=== PATIENT | male | born 1945 | race Hispanic/Latino ===

== ENCOUNTER 2018-09-01 04:34 | Emergency (ER) | payer MEDICARE ==
[~2018-09-01] VITALS: Ht 167.6 cm; Wt 90.3 kg
[~2018-09-01 04:34] MED LIST: AMLODIPINE BESY10 MG PO; ATORVASTATIN CA10 MG PO; DOXYCYCLINE HY100 MG PO; FOLIC ACID1 MG PO; GLIPIZIDE5 MG PO; LASIX40 MG PO; LEVAQUIN500 MG PO; METFORMIN HCL500 MG PO; METOPROLOL SUCC25 MG PO; POTASSIUM CHLO10 ME1 PO; PROAIR HFA INH8.5 GM INH; VITAMIN B-121000 MCG SQ
--- OUTSIDE RECORDS SUMMARY | 2018-09-01 04:36 | XMS REPORT ---
Author Author [facility], [place] Address Unknown Phone Unavailable Care Team Providers Care Acute Care Physical Therapist Name Role Phone Barbara MEEHAN Unavailable Unavailable MARIPOSA EL Unavailable Unavailable Problems This patient has no known problems. Allergies, Adverse Reactions, Alerts This patient has no known allergies or adverse reactions. Medications This patient has no known medications. Results Test Description Test Time Test Comments Text Results Atomic Results Result Comments CHEST 2 VIEWS [place] [address] Patient Name: CECILY COOMBS MR #: [id number] : 1945 Age/Sex: 71/M Req #: [id number] Adm Physician: DAYANNA MEEHAN MD Ordered by: LAUREN QUILES MD Report #: [id number] Location: MED/SURG Room/Bed: [facility] Procedure: [id number] DX/CHEST 2 VIEWS Exam Date: 04/22/17 Exam Time: 1212 REPORT STATUS: Signed EXAMINATION: Chest, CHEST 2 VIEWS INDICATION: Chest pain COMPARISON: Portable chest 04/22/2017 at 0251 hours FINDINGS: LINES: None. Heart: Normal cardiac silhouette. Vascular: The pulmonary vasculature is within normal limits. Atherosclerotic calcifications of the aortic arch. Mediastinum: No mediastinal, hilar, or axillary mass or lymphadenopathy. Lungs: No parenchymal mass. No focal consolidation. Bibasilar atelectasis. Pleura: No pleural effusion. No pneumothorax. Bones: No acute osseous abnormality. Degenerative changes of the thoracic spine. Soft tissues: Normal. Impression: No acute radiographic abnormality. Interval resolution of the pulmonary edema. Signed by: Dr. Mariposa Abreu M.D. on 04/22/2017 12:31 PM Dictated By: MARIPOSA ABREU MD 1231 Transcribed By: FÉLIX on 04/22/17 1231 COPY TO: LAUREN QUILES MD CHEST SINGLE (PORTABLE) [place] [address] Patient Name: CECILY COOMBS MR #: [id number] : 1945 Age/Sex: 71/M Req #: [id number] Adm Physician: Ordered by: ROHITH LAWRENCE MD Report #: [id number] Location: ER Room/Bed: Procedure: [id number] DX/CHEST SINGLE (PORTABLE) Exam Date: 04/22/17 Exam Time: 0252 REPORT STATUS: Signed EXAM: CHEST SINGLE (PORTABLE), AP 1 view DATE: 04/22/2017 2:22 AM Time stamp on exam: 0251 hours INDICATION: Shortness of breath COMPARISON: PA and lateral view of the chest April 09, 2017 FINDINGS: LINES/TUBES: None LUNGS: Interval worsening of pulmonary edema. Bibasilar atelectasis. PLEURA: Small layering pleural effusions. HEART AND MEDIASTINUM: Mild cardiomegaly. BONES AND SOFT TISSUES: No acute findings. IMPRESSION: Interval development of pulmonary edema, bibasilar atelectasis and small layering bilateral pleural effusions. Signed by: Dr. Brock Sands M.D. on 04/22/2017 3:11 AM Dictated By: BROCK SANDS MD 0 Transcribed By: FÉLIX on 04/22/17310 COPY TO: ROHITH LAWRENCE MD CHEST 2 VIEWS [place] [address] Patient Name: CECILY COOMBS MR #: [id number] : 1945 Age/Sex: 71/M Req #: [id number] Adm Physician: MARIPOSA EL MD Ordered by: LAUREN QUILES MD Report #: [id number] Location: MED/SURG Room/Bed: [facility] Procedure: [id number] DX/CHEST 2 VIEWS Exam Date: 04/09/17 Exam Time: 1540 REPORT STATUS: Signed EXAMINATION: PA and lateral views of the chest. COMPARISON: CT chest 04/06/2017 CLINICAL HISTORY: Shortness of breath DISCUSSION: Lines/tubes: None. Lungs: Lungs are well-inflated. Left basilar atelectatic changes. Right lung is grossly clear. Pleura: Small left-sided pleural effusion. Heart and mediastinum: Enlarged cardiac silhouette. Central pulmonary venous congestion. Bones and soft tissues: No acute bony abnormalities. IMPRESSION: Enlarged cardiac silhouette with central pulmonary venous congestion. Small left-sided pleural effusion and associated atelectasis. Signed by: Dr. Jesu Espinal M.D. on 04/09/2017 4:15 PM Dictated By: JESU ESPINAL MD 14 Transcribed By: FÉLIX on 04/09/171614 COPY TO: LAUREN QUILES MD CT CHEST WO [place] [address] Patient Name: CECILY COOMBS MR #: [id number] : 1945 Age/Sex: 71/M Req #: [id number] [facility] Physician: MARIPOSA EL MD Ordered by: MARIPOSA EL MD Report #: [id number] Location: MED/SURG Room/Bed: [facility] Procedure: [id number] CT/CT CHEST WO Exam Date: 04/06/17 Exam Time: 1055 REPORT STATUS: Signed PROCEDURE: CT CHEST WITHOUT CONTRAST CT scan of the chest WITHOUT intravenous contrast, using standard protocol. TECHNIQUE: The chest was scanned utilizing a multidetector helical scanner from the apex to the level of the adrenal glands. No IV contrast was administered as per physician request. Coronal and sagittal multiplanar reformations were obtained. COMPARISON: Chest portable 04/06/2017. INDICATIONS: SHORTNESS OF BREATH FINDINGS: Lines/tubes: None. Lungs and Airways: Bilateral diffuse geographic ground glass opacities are present in the lungs bilaterally, most prominent in the bilateral lower lobes, series 3 image 69. Minimal opacities are present in the upper lobes. Bibasilar compression atelectasis. Pleura: Bilateral small pleural effusions. No pneumothorax. Heart and mediastinum: The thyroid gland is normal. No significant mediastinal, hilar or axillary lymphadenopathy is seen. The heart and pericardium are within normal limits. Multiple subcentimeter noncalcified lymph nodes are present in the mediastinum. Soft tissues: Normal. Abdomen: Limited views of the upper abdomen show no abnormality within the visualized liver, spleen, pancreas, or kidneys. The adrenal glands are normal. No gallbladder is visualized. Thickening of the gastric wall, likely secondary to under distention. Bones: The visualized bony thorax is within normal limits. Degenerative changes of the thoracic spine. IMPRESSION: Bilateral multifocal airspace opacities consistent with pneumonia. Small bilateral pleural effusions. Dictated by: Mariposa Abreu M.D. on 04/06/2017 at 13:27 Electronically approved by: Mariposa Abreu M.D. on 04/06/2017 at 13:27 Dictated By: MARIPOSA ABREU MD 26 Transcribed By: SAURABH on 04/06/171326 COPY TO: MARIPOSA EL MD CHEST SINGLE (PORTABLE) [place] [address] Patient Name: CECILY COOMBS MR #: [id number] : 1945 Age/Sex: 71/M Req #: [id number] Adm Physician: Ordered by: THUAN ANTUNEZ MD Report #: [id number] Location: ER Room/Bed: Procedure: [id number] DX/CHEST SINGLE (PORTABLE) Exam Date: 04/06/17 Exam Time: 106 REPORT STATUS: Signed CHEST SINGLE (PORTABLE), 04/06/2017 12:47 AM Technique: CHEST SINGLE (PORTABLE) Comparison: 10/04/2016 Clinical history: Chest pain Findings: See Impression Impression: 1. Stable borderline cardiomegaly. 2. Central vascular congestion and/or mild edema. No effusion or pneumothorax. Signed by: Dr Aide Zamarripa MD on 04/06/2017 2:13 AM Dictated By: AIDE ZAMARRIPA MD 2 Transcribed By: FÉLIX on 04/06/17212 COPY TO: THUAN ANTUNEZ MD
--- NOTE | 2018-09-01 07:03 | Diagnostic Imaging Report ---
EXAMINATION: CHEST 2 VIEWS INDICATION: COUGH R/O PNA COMPARISON: 04/22/2017 FINDINGS: PA and lateral views TUBES and LINES: None. LUNGS: Lungs are well inflated. Lungs are clear. There is no evidence of pneumonia or pulmonary edema. PLEURA: No pleural effusion or pneumothorax. HEART AND MEDIASTINUM: The cardiomediastinal silhouette is unremarkable. There are atherosclerotic calcifications within the aorta. BONES AND SOFT TISSUES: No acute osseous lesion. Soft tissues are unremarkable. UPPER ABDOMEN: No free air under the diaphragm. Eventration of the right hemidiaphragm. IMPRESSION: No acute thoracic abnormality. Signed by: DR. Ramon Stokes MD on 09/01/2018 6:59 AM
--- NOTE | 2018-09-01 07:11 | NUR ---
RECEIVED ENDORSEMENT FROM LUANA RN; ADULT ASSESSMENT PERFORMED
--- NOTE | 2018-09-01 07:11 | NUR ---
REPORT GIVEN TO ESTRELLA [facility] DAY SHIFT NURSE.
[2018-09-01 07:28] VITALS: BP 178/76
== END 2018-09-01 07:35 | disposition home or self-care (01) ==
LOC: ER 04:34
DX: R05 Cough (principal); B34.9 Viral infection, unspecified
CPT/HCPCS: 71046; 87400; 99283

== ENCOUNTER 2019-02-11 16:03 | Emergency (ER) | payer OTHER, MEDICARE ==
[~2019-02-11] VITALS: Ht 167.6 cm; Wt 90.3 kg
[~2019-02-11 16:03] MED LIST changes: +FERROUS SULFAT325 M1 PO; +HYDRALAZINE HCL25 MG PO
[2019-02-11] MEDS ORDERED: SODIUM CHLORIDE 0.9% 500ML 500 ML IV STA (16:13)
[2019-02-11] MEDS ORDERED: MORPHINE SULFATE INJ 4 MG/ML INJ 1ML IV STA (16:13)
[2019-02-11] MEDS ORDERED: PROMETHAZINE 12.5MG/ NACL 0.9% 12.5 MG/50 ML BAG IV ONE (16:15)
[2019-02-11] MEDS ORDERED: FAMOTIDINE 20 MG/2 ML VIAL IV ONE (16:15)
[2019-02-11] MEDS ORDERED: CEFTRIAXONE SOD 1 GM VIAL IV ONE (16:15)
[2019-02-11] MEDS ORDERED: CEFTRIAXONE SOD 1 GM/NS 50 ML 50 ML IV ONE (16:30)
[2019-02-11 16:33] LABS: BILIRUBIN,URINE NEGATIVE (NEGATIVE); CLARITY,URINE SL CLOUDY (CLEAR); COLOR,URINE YELLOW (YELLOW); KETONES,URINE NEGATIVE (NEGATIVE); LEUKOCYTE ESTERASE ,URINE NEGATIVE (NEGATIVE); NITRITE,URINE NEGATIVE (NEGATIVE); URINE UROBILINOGEN 0.2 mg/dL (0.2 - 1)
[2019-02-11 16:33] LABS: BASOPHILS % 0.2 % (0.0-1.0); HEMATOCRIT 36.9 % (38.2-49.6); HEMOGLOBIN 12.6 g/dL (14.0-18.0); LYMPHOCYTES # (AUTO) 1.6 (1.0-3.2); MEAN CORPUSCULAR HEMOGLOBIN 28.9 pg (28-32); MEAN CORPUSCULAR HGB CONC 34.1 g/dL (31-35); MEAN CORPUSCULAR VOLUME 84.6 fL (81-99); MONOCYTES # (AUTO) 0.7 (0.2-0.8); MONOCYTES % 5.7 % (4.4-11.3); NEUTROPHILS # (AUTO) 9.8 (2.1-6.9); NEUTROPHILS % 80.9 % (38.7-80.0); PLATELET COUNT 256 x10e3/uL (140-360); RED BLOOD COUNT 4.36 x10e6/uL (4.3-5.7); RED CELL DISTRIBUTION WIDTH 13.7 % (11.7-14.4)
[2019-02-11 16:34] LABS: PROTEIN,URINE DIPSTICK 2+ (NEGATIVE)
[2019-02-11 16:45] LABS: AMORPHOUS SEDIMENT,URINE MODERATE (FEW); BACTERIA,URINE FEW /HPF; EPITHELIAL CELLS,URINE RARE /LPF
[2019-02-11 16:59] LABS: ALBUMIN 3.7 g/dL (3.5-5.0); ALBUMIN/GLOBULIN RATIO 0.8 (0.8-2.0); ANION GAP 19.1 mmol/L (8-16); CALCIUM 9.6 mg/dL (8.4-10.2); CREATININE, SERUM 3.1 mg/dL (0.72-1.25); POTASSIUM 4.1 mmol/L (3.5-5.1)
--- NOTE | 2019-02-11 18:01 | Diagnostic Imaging Report ---
EXAM: CT of the abdomen and pelvis WITHOUT contrast HISTORY: Abdominal pain, pyelonephritis, look for stone, right flank, nausea and vomiting COMPARISON: None available. TECHNIQUE: The abdomen and pelvis were scanned utilizing a multidetector helical scanner. Coronal and sagittal reformats are available. PROTOCOL: Renal colic IV CONTRAST: None, which limits sensitivity and specificity of evaluation of the soft tissues and vascular structures. ORAL CONTRAST: None, which limits sensitivity and specificity of evaluation of the bowel. RADIATION DOSE: Total DLP: 396.92 mGy*cm Estimated effective dose: (DLP x 0.015 x size factor) Dose modulation, iterative reconstruction, and/or weight based adjustment of the mA/kV was utilized to reduce the radiation dose to as low as reasonably achievable. COMPLICATIONS: None FINDINGS: LOWER THORAX: Mild bibasilar atelectasis. Mild thickening of the visualized portion of the distal esophagus. HEPATOBILIARY: No definite focal hepatic lesions. No biliary ductal dilatation. The gallbladder is unremarkable. SPLEEN: No splenomegaly. PANCREAS: No focal masses or ductal dilatation. ADRENALS: No adrenal nodule. KIDNEYS/URETERS: No hydronephrosis, stones, or solid mass lesion identified. Parenchymal enhancement cannot be assessed. Mild bilateral nonspecific perinephric fat stranding. PELVIC ORGANS/BLADDER: The urinary bladder is partially decompressed, but otherwise appears unremarkable. PERITONEUM / RETROPERITONEUM: No free air or fluid. GI TRACT: On limited evaluation of the gastrointestinal tract, no dilation or wall thickening identified. The appendix appears normal. Scattered colonic diverticuli, without CT evidence of acute diverticulitis. LYMPH NODES: No pathologically enlarged lymph nodes. VESSELS: Scattered atherosclerotic vascular calcifications, including the coronary arteries. BONES and JOINTS: No aggressive osseous lesion or acute fracture. Multilevel degenerative changes of the axial skeleton, including mild degenerative anterolisthesis of L4 on L5. SOFT TISSUES: Unremarkable. IMPRESSION: 1. No calcified urinary tract stone or hydronephrosis. 2. Mild nonspecific bilateral perinephric fat stranding, which could be seen in the setting of pyelonephritis. 3. Coronary atherosclerosis. 4. Colonic diverticulosis. Signed by: Dr. Ibrahima Zelaya D.O., M.M.M. on 02/11/2019 5:57 PM
[2019-02-11] MEDS ORDERED: DIPHENHYDRAMINE HCL INJ 50 MG/ML VIAL IV PRN (18:30)
[2019-02-11] MEDS ORDERED: ONDANSETRON HCL INJ 2MG/ML 2ML 2 MG/ML VIAL IV PRN (18:30)
[2019-02-11] MEDS ORDERED: DEXTROSE 50% SYRINGE 50 ML IV PRN (18:30)
[2019-02-11] MEDS ORDERED: ENALAPRILAT IV INJ 1.25 MG/ML VIAL IV PRN (18:30)
[2019-02-11] MEDS ORDERED: ACETAMINOPHEN 325 MG TAB PO PRN (18:30)
[2019-02-11 18:38] VITALS: BP 141/68
[2019-02-11] MEDS ORDERED: ENOXAPARIN SODIUM INJ 100 MG/ML SYR SC NR (18:45)
[2019-02-11] MEDS ORDERED: ZOLPIDEM TARTRATE 5 MG TAB PO PRN (21:00)
[2019-02-11] MEDS ORDERED: INSULIN REGULAR, HUMAN 100 UNIT/1 ML 3ML VIAL SQ SCH (21:00)
[2019-02-11] MEDS ORDERED: SIMVASTATIN 40 MG TAB PO SCH (21:00)
[2019-02-12] MEDS ORDERED: NITROGLYCERIN 2% OINT 1 GM PKT TOP SCH
[2019-02-12] MEDS ORDERED: FAMOTIDINE 20 MG/2 ML VIAL IV SCH (09:00)
[2019-02-12] MEDS ORDERED: ASPIRIN 325 MG TAB EC PO SCH (09:00)
== END 2019-02-11 18:49 | disposition home or self-care (01) ==
LOC: ER 16:03
DX: R10.9 Unspecified abdominal pain (principal); R11.2 Nausea with vomiting, unspecified; N10 Acute pyelonephritis; I10 Essential (primary) hypertension; E11.9 Type 2 diabetes mellitus without complications; E78.5 Hyperlipidemia, unspecified; D64.9 Anemia, unspecified
CPT/HCPCS: 36415; 74176; 80053; 81001; 85025; 99284; J0696; J2270; J2550; J7040